=== PATIENT | female | born 1955 | race Caucasian/White ===

== ENCOUNTER 2019-06-08 19:46 | Observation (INO) ==
[2019-06-08 20:43] LABS: Basophils # 0.1 K/mcL (0.0-0.2); Basophils % 0.7 %; Eosinophils # 0.1 K/mcL (0.0-0.6); Hematocrit 37.5 % (35.3-44.9); Hemoglobin 12.9 g/dL (11.5-15.4); Immature Granulocytes % 5.4 % (0-4); Lymphocytes # 1.9 K/mcL (0.6-4.6); Lymphocytes % 18.2 %; Mean Corpuscular HGB Conc 34.4 g/dL (31.6-35.5); Mean Corpuscular Hemoglobin 31.4 pg (28.0-33.3); Mean Corpuscular Volume 91.2 fL (83.0-100.0); Mean Platelet Volume 9.5 fL (9.4-12.4); Monocytes # 0.9 K/mcL (0.0-1.3); Monocytes % 8.6 %; Platelet Count 358 K/mcL (140-400); Red Blood Count 4.11 M/mcL (3.82-4.97); Segmented Neutrophils % 66.1 %; White Blood Count 10.5 K/mcL (4.3-11.1)
[2019-06-08 20:44] LABS: Neutrophils # 6.9 K/mcL (1.6-8.9)
[2019-06-08 20:59] LABS: Reactive Lymphocytes Present (Not Present)
[2019-06-08 21:03] LABS: BUN/Creatinine Ratio 10 (6-26); Blood Urea Nitrogen 7 mg/dL (8-23); Calcium 9.1 mg/dL (8.6-10.3); Carbon Dioxide 24 mEq/L (23-29); Chloride 102 mEq/L (98-107); Glucose 124 mg/dL (70-105); Osmolality,Calculated 283 (280-300); Potassium 3.5 mEq/L (3.5-5.1); Sodium 137 mEq/L (136-145); Troponin I < 0.03 ng/mL (< 0.04); eGFR For African Americans > 60 (> 60); eGFR For Non-African Americans > 60 (> 60)
[2019-06-08] MEDS ORDERED: Ipratropium/Albuterol Neb 3 ML IH ONE (22:05)
[2019-06-08] MEDS ORDERED: methylPREDNISolone 125 MG/2 ML VIAL IVP ONE (22:05)
[2019-06-08] MEDS ORDERED: Isovue-370 500 ML BOTTLE IVP ONE (22:07)
[2019-06-08] MEDS ORDERED: 0.9 % Sodium Chloride 1,000 ML IVC ONE (22:19)
[2019-06-08] MEDS ORDERED: levoFLOXacin 750 MG/150 ML 750 MG/150 ML BAG IVPB ONE (22:19)
[2019-06-09] MEDS ORDERED: *HR* Enoxaparin 100 MG/ML SYRINGE SQ STA (00:09)
[2019-06-09] MEDS ORDERED: Naloxone 0.4 MG/ML INJ IVP PRN (06:19)
[2019-06-09] MEDS ORDERED: Albuterol 2.5 MG/3 ML NEBULIZER IH PRN (06:21)
[2019-06-09 07:21] VITALS: BP 138/87
[2019-06-09 07:21] LABS: Hematocrit 38.3 % (35.3-44.9); Hemoglobin 13.4 g/dL (11.5-15.4); Mean Corpuscular Hemoglobin 31.5 pg (28.0-33.3); Mean Corpuscular Volume 90.1 fL (83.0-100.0); Mean Platelet Volume 9.6 fL (9.4-12.4); Platelet Count 392 K/mcL (140-400); Red Blood Count 4.25 M/mcL (3.82-4.97); Red Cell Distribution Width 15.3 % (11.5-14.5); White Blood Count 10.9 K/mcL (4.3-11.1)
[2019-06-09 07:45] LABS: BUN/Creatinine Ratio 11 (6-26); Blood Urea Nitrogen 6 mg/dL (8-23); Calcium 9.2 mg/dL (8.6-10.3); Carbon Dioxide 22 mEq/L (23-29); Chloride 104 mEq/L (98-107); Glucose 174 mg/dL (70-105); Osmolality,Calculated 290 (280-300); Potassium 3.7 mEq/L (3.5-5.1); Sodium 139 mEq/L (136-145); eGFR For African Americans > 60 (> 60); eGFR For Non-African Americans > 60 (> 60)
[2019-06-09] MEDS: Ipratropium/Albuterol Neb 3 ML IH SCH ×2 (07:47→11:25)
[2019-06-09] MEDS ORDERED: predniSONE 20 MG TABLET PO SCH (09:00)
[2019-06-09] MEDS ORDERED: *HR* Enoxaparin 100 MG/ML SYRINGE SQ SCH (12:00)
[2019-06-09] MEDS ORDERED: levoFLOXacin 750 MG/150 ML 750 MG/150 ML BAG IVPB SCH (22:00)
== END 2019-06-09 13:33 | disposition home or self-care (01) ==
LOC: EMEROOARM 19:46 → 3BNU 19:46
PROVIDERS: ADMIT Internal Medicine; ATTEND Internal Medicine